=== PATIENT | female | born 1995 ===

== ENCOUNTER 2017-10-15 14:14 | Emergency (ER) | payer OTHER ==
[2017-10-15 14:38] VITALS: O2SAT 100
--- NOTE | 2017-10-15 17:13 | RAD ---
HISTORY: flu COMPARISON: None available. TECHNIQUE: Chest PA and lateral FINDINGS: LUNGS: No focal consolidation. Please note that chest x-ray has limited sensitivity for the detection of pulmonary masses. PLEURA: No significant pleural effusion identified. No definite pneumothorax . CARDIOVASCULAR: Heart size appears within normal limits. OSSEOUS STRUCTURES: No acute osseous abnormality identified. VISUALIZED UPPER ABDOMEN: Unremarkable. OTHER FINDINGS: None. IMPRESSION: No focal consolidation identified.
--- NOTE | 2017-10-15 17:22 | ED PDOC ---
HPI: General Adult Time Seen by Provider: 10/15/17 14:42 Chief Complaint (Nursing): Flu-like Symptoms Chief Complaint (Provider): flu like symptoms History Per: Patient, Health Safety Manager (Kiran) History/Exam Limitations: no limitations Onset/Duration Of Symptoms: Days (1), Sudden Onset Current Symptoms Are (Timing): Still Present Severity: Moderate Additional Complaint(s): 22yo prior well female developed flu like illness yesterday consisting of body aches, sore throat, dry cough, malaise and headache. Denies difficulty breathing , syncope, chest pain or rash. +sick contact w flu at home. Past Medical History Reviewed: Historical Data, Nursing Documentation, Vital Signs Vital Signs: Last Vital Signs Temp 97 F L 10/15/17 14:36 Pulse 89 10/15/17 14:36 Resp 19 10/15/17 14:36 BP 115/75 10/15/17 14:36 Pulse Ox 100 10/15/17 14:36 - Medical History PMH: No Chronic Diseases - Family History Family History: States: Unknown Family Hx - Social History Current smoker - smoking cessation education provided: No - Immunization History Hx Tetanus Toxoid Vaccination: No Hx Influenza Vaccination: Yes Hx Pneumococcal Vaccination: No - Home Medications Home Medications: Ambulatory Orders Medication Instructions Recorded Nabumetone [Relafen] 500 mg PO BID #20 tab 01/02/16 traMADol [Ultram] 50 mg PO TID PRN #15 tab 01/02/16 Ibuprofen [Motrin Tab] 600 mg PO Q6 PRN #15 tab 10/15/17 Oseltamivir [Tamiflu] 75 mg PO BID #10 cap 10/15/17 - Allergies Allergies/Adverse Reactions: Allergies Allergy/AdvReac Type Severity Reaction Status Date / Time No Known Allergies Allergy Verified 01/02/16 12:32 Review of Systems Constitutional: Positive for: Fever, Chills, Malaise. Negative for: Weight loss ENT: Positive for: Nose Discharge, Throat Pain. Negative for: Throat Swelling Respiratory: Positive for: Cough. Negative for: Shortness of Breath, Sputum, Wheezing Gastrointestinal: Negative for: Abdominal Pain Genitourinary Female: Negative for: Dysuria, Hematuria Musculoskeletal: Positive for: Other (+myalgias). Negative for: Neck Pain, Back Pain, Leg Pain Skin: Negative for: Rash, Jaundice Neurological: Positive for: Headache, Dizziness. Negative for: Weakness Physical Exam - Reviewed Nursing Documentation Reviewed: Yes Vital Signs Reviewed: Yes - Physical Exam Appears: Positive for: Well, Non-toxic, No Acute Distress Head Exam: Positive for: ATRAUMATIC, NORMAL INSPECTION, NORMOCEPHALIC Skin: Positive for: Normal Color, Warm, DRY Eye Exam: Positive for: EOMI, Normal appearance, PERRL ENT: Positive for: Pharyngeal Erythema. Negative for: Tonsillar Exudate, Tonsillar Swelling Neck: Positive for: Normal, Painless ROM Cardiovascular/Chest: Positive for: Regular Rate, Rhythm Respiratory: Positive for: Normal Breath Sounds. Negative for: Decreased Breath Sounds, Respiratory Distress Gastrointestinal/Abdominal: Positive for: Bowel Sounds, Soft. Negative for: Tenderness, Guarding Back: Positive for: Normal Inspection Extremity: Positive for: Normal ROM. Negative for: Swelling Neurologic/Psych: Positive for: Alert, Oriented. Negative for: Motor/Sensory Deficits, Facial Droop - Laboratory Results Urine POC: Negative Urine dip results: Negative for: Leukocyte Esterase, Blood - ECG O2 Sat by Pulse Oximetry: 100 Pulse Ox Interpretation: Normal - Radiology X-Ray: Interpreted by Me X-Ray Interpretation: No Acute Disease Medical Decision Making Medical Decision Making: toradol 30mg given w improvement strep neg Rx tamiflu, motrin, followup PMD Disposition - Clinical Impression Clinical Impression: Influenza-like symptoms - Patient ED Disposition Is Patient to be Admitted: No Counseled Patient/Family Regarding: Studies Performed, Diagnosis, Need For Followup, Rx Given - Disposition Referrals: [facility] [Outside] Disposition: Routine/Home Disposition Time: 17:01 Condition: STABLE Additional Instructions: Drink plenty of fluids. Avoid contact with others. Take medications as directed. Return to ER for any difficulty breathing, weakness, or any concern. Prescriptions: Ibuprofen [Motrin Tab] 600 mg PO Q6 PRN #15 tab PRN Reason: Pain, Moderate (4-7) Oseltamivir [Tamiflu] 75 mg PO BID #10 cap Instructions: Flu, Adult (DC) Forms: [employer] (Norwegian), [facility] ED School/Work Excuse
[2017-10-15 17:27] VITALS: BP 118/68; PULSE 76; RESP 18; TEMP 97.8
--- NOTE | 2017-10-16 19:11 | CARD ---
APPROVED REPORT EKG Measurement Heart [id number] <Conclusion> Normal sinus rhythm Normal ECG
== END 2017-10-15 17:28 | disposition home or self-care (01) ==
LOC: H.ER 14:14
DX: J11.1 Influenza due to unidentified influenza virus with other respiratory manifestations (principal)
CPT/HCPCS: 71046; 81025; 87070; 87430; 93005; 96372; 99282; J1885

== ENCOUNTER 2019-01-27 12:29 | Emergency (ER) | payer OTHER ==
--- NOTE | 2019-01-27 13:08 | ED PDOC ---
HPI: Abdomen Time Seen by Provider: 01/27/19 12:50 Chief Complaint (Nursing): Abdominal Pain Chief Complaint (Provider): Abdominal Pain History Per: Patient History/Exam Limitations: no limitations Onset/Duration Of Symptoms: Days (x 3) Current Symptoms Are (Timing): Still Present Location Of Pain/Discomfort: RLQ, LLQ Quality Of Discomfort: "Pain" Associated Symptoms: Urinary Symptoms Additional Complaint(s): 23 year old female presents with lower abdominal pain, pain on urination and difficulty urinating for 3 days. Patient reports a brief "menstrual period" where she bled for 2 days. She is on hormonal control. Denies back pain, vaginal bleeding, fever and vomiting. PMD: Abnormal Vaginal Bleeding: Yes Past Medical History Reviewed: Historical Data, Nursing Documentation, Vital Signs Vital Signs: Last Vital Signs Temp 98.3 F 01/27/19 12:39 Pulse 76 01/27/19 12:39 Resp 18 01/27/19 12:39 BP 114/73 01/27/19 12:39 Pulse Ox 99 01/27/19 12:39 Primary Care Provider: FAMILY PROVIDER,NO - Medical History PMH: No Chronic Diseases - Surgical History Surgical History: No Surg Hx - Family History Family History: States: Unknown Family Hx - Immunization History Hx Tetanus Toxoid Vaccination: No Hx Influenza Vaccination: Yes Hx Pneumococcal Vaccination: No - Home Medications Home Medications: Ambulatory Orders Medication Instructions Recorded Nabumetone [Relafen] 500 mg PO BID #20 tab 01/02/16 traMADol [Ultram] 50 mg PO TID PRN #15 tab 01/02/16 Ibuprofen [Motrin Tab] 600 mg PO Q6 PRN #15 tab 10/15/17 Oseltamivir Cap [Tamiflu] 75 mg PO BID #10 cap 10/15/17 - Allergies Allergies/Adverse Reactions: Allergies Allergy/AdvReac Type Severity Reaction Status Date / Time No Known Allergies Allergy Verified 01/27/19 12:40 Review of Systems ROS Statement: Except As Marked, All Systems Reviewed And Found Negative Constitutional: Negative for: Fever Gastrointestinal: Positive for: Abdominal Pain Genitourinary Female: Positive for: Dysuria. Negative for: Vaginal Bleeding Musculoskeletal: Negative for: Back Pain Physical Exam - Reviewed Nursing Documentation Reviewed: Yes Vital Signs Reviewed: Yes - Physical Exam Appears: Positive for: Non-toxic, No Acute Distress Head Exam: Positive for: ATRAUMATIC, NORMAL INSPECTION, NORMOCEPHALIC Skin: Positive for: Normal Color, Warm, Dry Eye Exam: Positive for: EOMI, Normal appearance, PERRL Neck: Positive for: Normal, Painless ROM, Supple Cardiovascular/Chest: Positive for: Regular Rate, Rhythm. Negative for: Murmur Respiratory: Positive for: Normal Breath Sounds. Negative for: Respiratory Distress Gastrointestinal/Abdominal: Positive for: Tenderness (suprapubic). Negative for: Mass, Guarding Back: Positive for: Normal Inspection. Negative for: L CVA Tenderness, R CVA Tenderness Extremity: Positive for: Normal ROM. Negative for: Deformity Neurological/Psych: Positive for: Awake, Alert, Normal Tone, Oriented (x 3). Negative for: Motor/Sensory Deficits - Laboratory Results Result Diagrams: 01/27/19 13:30 01/27/19 13:30 - ECG O2 Sat by Pulse Oximetry: 99 (RA) Pulse Ox Interpretation: Normal - Progress Re-evaluation Time: 15:13 Condition: Re-examined, Improved Medical Decision Making Medical Decision Makin:08 Impression: abdominal pain and dysuria Differential diagnoses include but are not limited to: UTI, fibroid, ovarian cyst less likely PID Initial Plan: --BMP --CBC --Urine dip --UA --Transvaginal US 15:00 US Transvaginal FINDINGS: UTERUS: Measures 6.7 x 4.7 x 2.8 cm. Normal in size and appearance. No fibroid or other mass lesion seen. ENDOMETRIUM: Measures 3 mm in diameter. Unremarkable. CERVIX: No cervical abnormality identified. RIGHT OVARY: Measures 1.9 x 1.6 x 1.5 cm. No solid mass. Normal flow. LEFT OVARY: Measures 2.6 x 1.4 x 1.7 cm. No solid mass. Normal flow. FREE FLUID: No significant free fluid noted. OTHER FINDINGS: None. IMPRESSION: Unremarkable pelvic ultrasound. Comments: Evaluation of the bladder not made with this transvaginal pelvic ultrasound. Scribe Attestation: Documented by Stacia Cadet, acting as a scribe for Germán Pickett MD. Provider Scribe Attestation: All medical record entries made by the Scribe were at my direction and personally dictated by me. I have reviewed the chart and agree that the record accurately reflects my personal performance of the history, physical exam, medical decision making, and the department course for this patient. I have also personally directed, reviewed, and agree with the discharge instructions and disposition. Disposition - Clinical Impression Clinical Impression: UTI (urinary tract infection) - Patient ED Disposition Is Patient to be Admitted: No Doctor Will See Patient In The: Office Counseled Patient/Family Regarding: Studies Performed, Diagnosis, Need For Followup - Disposition Referrals: [facility] [Outside] Disposition: Routine/Home Disposition Time: 15:14 Condition: GOOD Additional Instructions: YANG NGUYEN, thank you for letting us take care of you today. Your provider was Germán Pickett MD and you were treated for ABD PAIN. The emergency medical care you received today was directed at your acute symptoms. If you were prescribed any medication, please fill it and take as directed. It may take several days for your symptoms to resolve. Return to the Emergency Department if your symptoms worsen, do not improve, or if you have any other problems. Please contact your doctor or call one of the physicians/clinics you have been referred to that are listed on the Patient Visit Information form that is included in your discharge packet. Bring any paperwork you were given at discharge with you along with any medications you are taking to your follow up visit. Our treatment cannot replace ongoing medical care by a primary care provider outside of the emergency department. Thank you for allowing the [facility] team to be part of your care today. If you had an X-Ray or CT scan: A Radiologist will review the ED reading if any change in treatment is needed we will contact you. If you had a blood, urine, or wound culture: It will take several days for the results, if any change in treatment is needed we will contact you. Instructions: Urinary Tract Infections in Adults Forms: [employer] (Maltese)
[2019-01-27 13:42] LABS: BASO % 0.4 % (0.0-2.0); EOS # 0.2 K/uL (0.0-0.7); EOS % 3.1 % (0.0-4.0); HEMOGLOBIN 14.6 g/dL (12.0-16.0); LYMPH # 1.9 K/uL (1.0-4.3); LYMPH % 23.9 % (20.0-40.0); MEAN CELL VOLUME 94.6 fl (81.0-99.0); MEAN CORPUSCULAR HGB CONC 33.8 g/dL (33.0-37.0); MEAN PLATELET VOLUME 7.8 fl (7.2-11.7); MONO # 0.4 K/uL (0.0-0.8); MONO % 5.1 % (0.0-10.0); NEUT # 5.3 K/uL (1.8-7.0); NEUT % 67.5 % (50.0-75.0); NRBC % 0.1 % (0.0-0.0); RBC 4.57 Mil/uL (3.80-5.20); RED CELL DISTRIBUTION WIDTH 12.9 % (11.5-14.5); WHITE BLOOD COUNT 7.8 K/uL (4.8-10.8)
[2019-01-27 13:47] LABS: SQUAMOUS EPITHIAL 1 /hpf (0-5); URINE BACTERIA FEW (<OCC); URINE BILIRUBIN NEGATIVE (NEGATIVE); URINE BLOOD MODERATE (NEGATIVE); URINE CLARITY CLOUDY (Clear); URINE COLOR YELLOW (YELLOW); URINE GLUCOSE (UA) NEG (NEGATIVE); URINE LEUKOCYTE ESTERASE MOD Leu/uL (Negative); URINE PROTEIN 100 mg/dL (NEGATIVE); URINE UROBILINOGEN 0.2-1.0 mg/dL (0.2-1.0)
[2019-01-27 13:59] LABS: BLOOD UREA NITROGEN 11 mg/dl (7-17); CALCIUM 8.7 mg/dL (8.4-10.2); GFR NON-AFRICAN AMERICAN > 60
--- NOTE | 2019-01-27 15:04 | US ---
Date of service: 01/27/2019 HISTORY: lower abd pain dysuria COMPARISON: Pelvic ultrasound transabdominal 04/15/2016 TECHNIQUE: Transvaginal real-time scanning with color Doppler applied FINDINGS: UTERUS: Measures 6.7 x 4.7 x 2.8 cm. Normal in size and appearance. No fibroid or other mass lesion seen. ENDOMETRIUM: Measures 3 mm in diameter. Unremarkable. CERVIX: No cervical abnormality identified. RIGHT OVARY: Measures 1.9 x 1.6 x 1.5 cm. No solid mass. Normal flow. LEFT OVARY: Measures 2.6 x 1.4 x 1.7 cm. No solid mass. Normal flow. FREE FLUID: No significant free fluid noted. OTHER FINDINGS: None. IMPRESSION: Unremarkable pelvic ultrasound. Comments: Evaluation of the bladder not made with this transvaginal pelvic ultrasound.
[2019-01-27 16:23] VITALS: BP 128/76; PULSE 78; RESP 20; TEMP 97.7; O2SAT 98
== END 2019-01-27 16:25 | disposition home or self-care (01) ==
LOC: H.ER 12:29
DX: N39.0 Urinary tract infection, site not specified (principal)